=== PATIENT | female | born 1940 | race Caucasian/White ===

== ENCOUNTER → 2016-03-15 | Outpatient (CLI) | payer OTHER, MEDICARE ==
--- NOTE | 2016-03-15 16:44 | MR ---
MRI Thoracic Spine Without Contrast at 1455 hours History: R53.1, weakness. Technique: Sagittal T1/T2/STIR and axial T1/T2-weighted MR series of the thoracic spine without contr ast. Findings: No evidence of thoracic compression fractures or destructive osseous lesions. Thoracic spin al cord demonstrates normal signal intensity without cord edema or myelomalacia. Conus medullaris end s at approximately L1 level. Sagittal images of the lower cervical spine demonstrate severe degenerative disk disease at C5-C6, C6 -C7 and C7-T1 with degenerative retrolisthesis at C5-C6 and C6-C7 resulting in moderate central canal stenosis at C5-C6, and degenerative anterolisthesis at C7-T1 resulting in moderate bilateral neural foraminal stenosis without central canal stenosis. T1-T2: Moderate degenerative disk disease and degenerative grade 1 anterolisthesis, left paramedian d orsal disk/osteophyte complex and mild bilateral facet arthropathy resulting in mild central canal st enosis and mild to moderate bilateral neural foraminal stenosis, left worse than right. T2-T3: Severe degenerative disk disease and degenerative retrolisthesis with circumferential osteophy adan resulting in moderate to severe right neural foraminal stenosis without central canal stenosis. T3-T4: Severe degenerative disk disease with degenerative anterolisthesis and circumferential osteoph ytes. No central canal or neural foraminal stenosis. T4-T5: Severe degenerative disk disease and degenerative anterolisthesis resulting in mild right neur al foraminal stenosis without central canal or left neural foraminal stenosis. T5-T6: Moderate degenerative disk disease with ventral osteophytes. No disk herniation or stenosis. T6-T7: Severe degenerative disk disease with ventral osteophytes. No disk herniation or stenosis. T7-T8: Severe degenerative disk disease with dorsal disk/osteophyte complex resulting in mild central canal stenosis without neural foraminal stenosis. T8-T9: Severe degenerative disk disease and circumferential osteophytes resulting in mild central can al stenosis without neural foraminal stenosis. T9-T10: Severe degenerative disk disease and circumferential osteophytes and mild bilateral facet art hropathy resulting in minimal central canal stenosis without neural foraminal stenosis. T10-T11: Mild degenerative disk disease without disk herniation or stenosis. T11-T12: Moderate degenerative disk disease with minimal dorsal disk/osteophyte complex. No stenosis. T12-L1: Severe degenerative disk disease with degenerative retrolisthesis, circumferential disk bulge and osteophytes and mild bilateral facet arthropathy resulting in minimal central canal stenosis and mild to moderate bilateral neural foraminal stenosis. At L1-L2, there is severe degenerative disk disease degenerative retrolisthesis resulting in mild benjamin tral canal stenosis with moderate bilateral facet arthropathy also resulting in mild to moderate bila teral neural foraminal stenosis. Impression: 1. No thoracic compression fractures or destructive osseous lesions. 2. No thoracic cord compression, edema, or myelomalacia. 3. Multilevel severe degenerative disk disease of the majority of the thoracic spine worse at T2-T3, and T12-L1 resulting in multilevel mild minimal central canal stenosis without cord compression or de formity, and mild to moderate neural foraminal stenosis, worse on the right at T2-T3, and bilaterally at T12-L1. 4. Severe cervical spondylosis partially visualized lower cervical spine and severe degenerative disk disease partially visualized upper lumbar spine for which consideration for additional imaging if cl inically indicated.
== END ==
LOC: FIMAGING 14:37
PROVIDERS: ATTEND Physical Medicine & Rehabilitation
DX: M51.34 Other intervertebral disc degeneration, thoracic region (principal); M48.04 Spinal stenosis, thoracic region; M99.72 Connective tissue and disc stenosis of intervertebral foramina of thoracic region; M43.14 Spondylolisthesis, thoracic region; M47.892 Other spondylosis, cervical region; M51.36 Other intervertebral disc degeneration, lumbar region

== ENCOUNTER → 2016-04-21 | Outpatient (CLI) | payer OTHER, MEDICARE | LOC: FIMAGING 10:43 | PROVIDERS: ATTEND Neurological Surgery | DX: Z09 Encounter for follow-up examination after completed treatment for conditions other than malignant neoplasm (principal); Z98.1 Arthrodesis status ==

== ENCOUNTER → 2016-04-24 | Outpatient (CLI) | payer OTHER, MEDICARE | LOC: FIMAGING 14:07 | PROVIDERS: ATTEND Physician Assistant | DX: M50.30 Other cervical disc degeneration, unspecified cervical region (principal); M43.13 Spondylolisthesis, cervicothoracic region ==

== ENCOUNTER → 2016-07-19 | Outpatient (CLI) | payer OTHER, MEDICARE | LOC: FIMAGING 10:27 | PROVIDERS: ATTEND Obstetrics & Gynecology | DX: Z12.31 Encounter for screening mammogram for malignant neoplasm of breast (principal) | CPT/HCPCS: G0202 ==

== ENCOUNTER → 2016-12-12 | Outpatient (CLI) | payer OTHER, MEDICARE | LOC: FIMAGING 14:42 | PROVIDERS: ATTEND Physician Assistant | DX: M51.36 Other intervertebral disc degeneration, lumbar region (principal); M51.37 Other intervertebral disc degeneration, lumbosacral region; M51.35 Other intervertebral disc degeneration, thoracolumbar region; M99.73 Connective tissue and disc stenosis of intervertebral foramina of lumbar region; M12.88 Other specific arthropathies, not elsewhere classified, other specified site; M48.061 Spinal stenosis, lumbar region without neurogenic claudication; M43.16 Spondylolisthesis, lumbar region ==

== ENCOUNTER → 2016-12-29 | Outpatient (CLI) | payer OTHER, MEDICARE | LOC: BHFA 10:00 | PROVIDERS: ATTEND Internal Medicine Cardiovascular Disease | DX: R00.1 Bradycardia, unspecified (principal); I49.1 Atrial premature depolarization ==

== ENCOUNTER → 2017-02-09 | Outpatient (CLI) | payer OTHER, MEDICARE ==
[~2017-02-09] MED LIST: GADOBUTROL 10 ML VIAL IVP ONE
== END ==
LOC: FIMAGING 12:02
PROVIDERS: ATTEND Physician Assistant
DX: M50.322 Other cervical disc degeneration at C5-C6 level (principal); R26.9 Unspecified abnormalities of gait and mobility
CPT/HCPCS: 70553; 72141; A9585

== ENCOUNTER → 2017-03-06 | Outpatient (CLI) | payer OTHER, MEDICARE | LOC: FIMAGING 08:44 | PROVIDERS: ATTEND Physician Assistant | DX: M50.321 Other cervical disc degeneration at C4-C5 level (principal); S13.150A Subluxation of C4/C5 cervical vertebrae, initial encounter ==

== ENCOUNTER → 2017-03-28 | Outpatient (CLI) | payer OTHER, MEDICARE | LOC: BHFA 11:00 | PROVIDERS: ATTEND Internal Medicine Cardiovascular Disease | DX: I49.1 Atrial premature depolarization (principal) ==

== ENCOUNTER → 2017-06-22 | Outpatient (CLI) | payer OTHER, MEDICARE | LOC: FIMAGING 12:57 | PROVIDERS: ATTEND Internal Medicine | DX: R06.00 Dyspnea, unspecified (principal) ==

== ENCOUNTER → 2017-07-20 | Outpatient (CLI) | payer OTHER, MEDICARE | LOC: FIMAGING 10:12 | PROVIDERS: ATTEND Internal Medicine | DX: Z12.31 Encounter for screening mammogram for malignant neoplasm of breast (principal) ==

== ENCOUNTER → 2017-08-14 | Outpatient (CLI) | payer OTHER, MEDICARE | PROVIDERS: ATTEND Physician Assistant | DX: R13.10 Dysphagia, unspecified (principal); R19.8 Other specified symptoms and signs involving the digestive system and abdomen ==

== ENCOUNTER → 2017-08-15 | Outpatient (CLI) | payer OTHER, MEDICARE | LOC: FIMAGING 09:20 | PROVIDERS: ATTEND Physician Assistant | DX: I70.0 Atherosclerosis of aorta (principal); K86.2 Cyst of pancreas ==

== ENCOUNTER → 2017-08-17 | Outpatient (CLI) | payer OTHER, MEDICARE ==
[~2017-08-17] MED LIST changes: +CITRATE DEXTROSE SOLN 500 ML BAG ONE; -GADOBUTROL 10 ML VIAL IVP ONE; +IOPAMIDOL (ISOVUE-300) 100 ML BTL ONE
== END ==
LOC: CIMAGING 11:16
PROVIDERS: ATTEND Physician Assistant
DX: R10.13 Epigastric pain (principal); K86.2 Cyst of pancreas
CPT/HCPCS: 74160; Q9967; J7060

== ENCOUNTER → 2017-10-23 | Outpatient (CLI) | payer OTHER, MEDICARE | CPT/HCPCS: 78452; 93017; A9500; J2785 ==

== ENCOUNTER → 2018-01-05 | Outpatient (CLI) | payer OTHER, MEDICARE | LOC: FIMAGING 11:47 | PROVIDERS: ATTEND Internal Medicine | DX: R10.9 Unspecified abdominal pain (principal) ==

== ENCOUNTER → 2018-03-11 | Outpatient (CLI) | payer OTHER, MEDICARE | LOC: FIMAGING 10:05 | PROVIDERS: ATTEND Internal Medicine | DX: M19.041 Primary osteoarthritis, right hand (principal); M19.042 Primary osteoarthritis, left hand ==

== ENCOUNTER → 2018-03-11 | Outpatient (CLI) | payer OTHER, MEDICARE ==
[~2018-03-11] MED LIST changes: -CITRATE DEXTROSE SOLN 500 ML BAG ONE; +GADOBUTROL 10 ML VIAL IVP ONE; -IOPAMIDOL (ISOVUE-300) 100 ML BTL ONE
== END ==
LOC: FIMAGING 10:01
DX: M50.30 Other cervical disc degeneration, unspecified cervical region (principal)
CPT/HCPCS: 72156; A9585; 82565-PO

== ENCOUNTER → 2018-05-03 | Outpatient (CLI) | payer OTHER, MEDICARE | LOC: BHFA 10:45 | PROVIDERS: ATTEND Internal Medicine Cardiovascular Disease | DX: I49.1 Atrial premature depolarization (principal) ==

== ENCOUNTER → 2018-06-08 | Outpatient (CLI) | payer OTHER, MEDICARE | LOC: FIMAGING 14:40 | PROVIDERS: ATTEND Physical Medicine & Rehabilitation | DX: S46.012A Strain of muscle(s) and tendon(s) of the rotator cuff of left shoulder, initial encounter (principal); M75.92 Shoulder lesion, unspecified, left shoulder; M19.012 Primary osteoarthritis, left shoulder ==

== ENCOUNTER → 2018-08-13 | Outpatient (CLI) | payer OTHER, MEDICARE | LOC: FIMAGING 13:37 ==

== ENCOUNTER → 2018-08-15 | Outpatient (CLI) | payer OTHER, MEDICARE | LOC: FIMAGING 09:07 ==